=== PATIENT | male | born 1955 | race Caucasian/White ===

== ENCOUNTER 2019-01-31 10:19 | Inpatient (IN) | payer OTHER ==
[~2019-01-31] VITALS: Ht 177.8 cm; Wt 82.1 kg
[2019-03-06] MEDS ORDERED: CRESTOR20 MG PO (09:24)
[2019-03-06] MEDS ORDERED: CHILDREN'S ASPI81 MG PO (09:24)
[2019-03-06] MEDS ORDERED: PLAVIX75 MG PO (09:24)
[2019-03-06] MEDS ORDERED: NORVASC2.5 M1 PO (09:24)
[2019-03-06] MEDS ORDERED: ZETIA10 MG PO (09:25)
[2019-03-06] MEDS ORDERED: LIPITOR40 MG PO (09:25)
== END 2019-03-14 12:33 | disposition home or self-care (01) | DRG 664 ==
LOC: O/R 03-13 05:07 → SURG 03-13 07:00
PROVIDERS: ADMIT Urology
PROC: 0THD8LZ Insertion of Artificial Sphincter into Urethra, Via Natural or Artificial Opening Endoscopic (ICD-10-PCS; principal; 2019-03-13 07:00)
DX: N39.42 Incontinence without sensory awareness (principal); I25.10 Atherosclerotic heart disease of native coronary artery without angina pectoris; I10 Essential (primary) hypertension; N39.3 Stress incontinence (female) (male)